=== PATIENT | female | born 1990 | race Caucasian/White ===

== ENCOUNTER 2020-11-05 18:14 | Inpatient (IN) | payer MEDICAID, OTHER ==
[~2020-11-05] VITALS: Ht 162.6 cm; Wt 69.9 kg
[2020-11-05] MEDS ORDERED: ACETAMINOPHEN 325MG TABLET PO ONE (18:45)
[2020-11-05 19:14] LABS: BASOPHILS % 0.3 % (0.0-2.0); EOSINOPHILS % 0.5 % (0.0-5.0); HEMATOCRIT. 33.2 % (36.0-48.0); HEMOGLOBIN. 11.4 g/dL (12.0-16.0); LYMPHOCYTES % 18.1 % (20.0-50.0); MEAN CORPUSCULAR HEMOGLOBIN 28.7 pg (28.0-32.0); MEAN CORPUSCULAR VOLUME 83.6 fL (81.0-99.0); MEAN PLATELET VOLUME 7.3 fl (7.4-10.4); MONOCYTES % 6.3 % (2.0-8.0); NEUTROPHILS % 74.8 % (40.0-76.0); PLATELET 342 x1000/uL (130-400); RED BLOOD CELL COUNT 3.98 mill/uL (4.2-5.4); RED CELL DISTRIBUTION WIDTH 14.8 % (11.6-14.6)
[2020-11-05 19:16] LABS: CHLORIDE 106 mEq/L (98-107)
[2020-11-05 19:39] LABS: B-HCG QUANTITATIVE 11138 mIU/mL (<3)
[2020-11-05 19:53] LABS: CLARITY URINE CLOUDY (CLEAR); COLOR URINE YELLOW (YELLOW); KETONES URINE NEGATIVE (NEGATIVE); LEUKOCYTE ESTERASE URINE 2+ (NEGATIVE); NITRITE URINE NEGATIVE (NEGATIVE); OCCULT BLOOD URINE 3+ (NEGATIVE); PROTEIN URINE 1+ (NEGATIVE); SPECIFIC GRAVITY URINE 1.007 (1.005-1.030); UROBILINOGEN URINE 0.2 E.U./dL (0.2-1.0)
[2020-11-05] MEDS ORDERED: CEFTRIAXONE 1 G PREMIX 50 ML IV ONE (21:45)
[2020-11-06] MEDS ORDERED: ACETAMINOPHEN 325MG TABLET PO ONE
[2020-11-06] MEDS ORDERED: ACETAMINOPHEN 325MG TABLET PO PRN (01:30)
[2020-11-06] MEDS ORDERED: ONDANSETRON HCL 4MG/2ML INJ IV PRN (01:30)
[2020-11-06] MEDS ORDERED: CEFAZOLIN 2,000 MG in DEXT 5% WATER 100 ML IV SCH (02:00)
[2020-11-06] MEDS: LACTATED RINGERS 1,000 ML IV SCH ×3 (03:52→16:39)
[2020-11-06 09:00] VITALS: BP 98/56
[2020-11-06 10:10] VITALS: BP 98/52
[2020-11-06] MEDS ORDERED: PREN1COM16 MT (10:27)
[2020-11-06 12:00] VITALS: BP 103/52
[2020-11-06 20:00] VITALS: BP 94/44
[2020-11-07] VITALS: BP 92/36
[2020-11-07] MEDS: LACTATED RINGERS 1,000 ML IV SCH ×3 (00:16→06:49)
[2020-11-07 04:00] VITALS: BP 97/44
[2020-11-07 08:00] VITALS: BP 91/46
[2020-11-07] MEDS ORDERED: CEPH500T MT (08:08)
[2020-11-07 09:15] VITALS: BP 91/46
== END 2020-11-07 11:10 | disposition home or self-care (01) | DRG 566 ==
LOC: ER 18:14 → ENRESERV 11-06 08:17 → 6EST 11-06 09:36
PROVIDERS: ADMIT Specialist; ATTEND Specialist
DX: O23.02 Infections of kidney in pregnancy, second trimester (principal); Z3A.17 17 weeks gestation of pregnancy
CPT/HCPCS: 36415; 76770; 76805; 80053; 81003; 84702; 85025; 86850; 86900; 99285; J0690; J0696; J7060

== ENCOUNTER 2021-04-03 02:13 | Inpatient (IN) | payer MEDICAID ==
[~2021-04-03] VITALS: Ht 162 cm; Wt 70.3 kg
[~2021-04-03 02:13] MED LIST: CEPH500T MT; PREN1COM16 MT
[2021-04-03] MEDS ORDERED: PENICILLIN G POTASSIUM 5 MMU in DEXT 5% WATER 100 ML IV NR (04:00)
[2021-04-03] MEDS ORDERED: LIDOCAINE HCL 1% 20ML VIAL (Pyxis) INJ INFIL SCH ×2 (04:30→09:00)
[2021-04-03 05:28] LABS: BASOPHILS % 0.3 % (0.0-2.0); HEMOGLOBIN. 11.8 g/dL (12.0-16.0); LYMPHOCYTES % 18.9 % (20.0-50.0); MEAN CORPUSCULAR HEMOGLOBIN 27.7 pg (28.0-32.0); MEAN CORPUSCULAR VOLUME 86.6 fL (81.0-99.0); MONOCYTES % 6.4 % (2.0-8.0); NEUTROPHILS % 73.4 % (40.0-76.0); PLATELET 336 x1000/uL (130-400); RED BLOOD CELL COUNT 4.27 mill/uL (4.2-5.4); RED CELL DISTRIBUTION WIDTH 14.8 % (11.6-14.6)
[2021-04-03 05:47] LABS: CLARITY URINE CLEAR (CLEAR); COLOR URINE YELLOW (YELLOW); KETONES URINE NEGATIVE (NEGATIVE); LEUKOCYTE ESTERASE URINE NEGATIVE (NEGATIVE); NITRITE URINE NEGATIVE (NEGATIVE); OCCULT BLOOD URINE NEGATIVE (NEGATIVE); PH URINE 6.5 (4.5-8.0); PROTEIN URINE TRACE (NEGATIVE); SPECIFIC GRAVITY URINE 1.012 (1.005-1.030); UROBILINOGEN URINE 0.2 E.U./dL (0.2-1.0)
[2021-04-03 06:04] LABS: *AMPHETAMINES SCREEN URINE NEGATIVE (NEGATIVE); *BARBITURATES SCREEN URINE NEGATIVE (NEGATIVE); *BENZODIAZEPINES SCREEN URINE NEGATIVE (NEGATIVE); *COCAINE SCREEN URINE NEGATIVE (NEGATIVE); METHADONE URINE SCREEN NEGATIVE (NEGATIVE); OPIATES URINE SCREEN NEGATIVE (NEGATIVE)
[2021-04-03 06:05] LABS: CANNABINOID URINE SCREEN NEGATIVE (NEGATIVE); PHENCYCLIDINE URINE SCREEN NEGATIVE (NEGATIVE)
[2021-04-03 06:06] LABS: HEPATITIS B SURFACE ANTIGEN NEGATIVE; INR 0.9; PROTHROMBIN TIME 9.7 sec (9.6-11.0)
[2021-04-03] MEDS ORDERED: DEXT 5%/LR + PITOCIN 20UNITS/L 1,000 ML IV SCH (09:00)
[2021-04-03] MEDS ORDERED: CARBOPROST TROMETHAMINE 250 MCG/ML AMPUL IM PRN (09:00)
[2021-04-03] MEDS ORDERED: MINERAL OIL 30ML BOTTLE PO ONE (09:00)
[2021-04-03] MEDS ORDERED: METHYLERGONOVINE MALEATE 0.2 MG/ML IM PRN (09:00)
[2021-04-03] MEDS ORDERED: NALOXONE HCL 0.4 MG/ML 1ML VIAL IM PRN (09:00)
[2021-04-03] MEDS ORDERED: ROPIVACAINE HCL/PF EPIDURAL 200 ML EP SCH (09:45)
[2021-04-03] MEDS: BUTORPHANOL TARTRATE 2 MG/ML VIAL IV PRN ×2 (12:19→19:38)
[2021-04-03] MEDS: LACTATED RINGERS 1,000 ML IV SCH ×2 (12:20→22:12)
[2021-04-03] MEDS: PENICILLIN G POTASSIUM 2.5 MMU in DEXTROSE 5% WATER 50 ML IV SCH ×3 (13:45→21:29)
[2021-04-04] MEDS: PENICILLIN G POTASSIUM 2.5 MMU in DEXTROSE 5% WATER 50 ML IV SCH ×4 (01:27→13:51)
[2021-04-04] MEDS: BUTORPHANOL TARTRATE 2 MG/ML VIAL IV PRN ×3 (05:14→17:02)
[2021-04-04] MEDS ORDERED: TERBUTALINE SULFATE 1MG/ML VIAL SUBCUT SCH (08:00)
[2021-04-04] MEDS: LACTATED RINGERS 1,000 ML IV SCH ×2 (08:01→17:52)
[2021-04-04] MEDS ORDERED: FENTANYL CITRATE/PF 50MCG/ML 2ML VIAL ONE (08:22)
[2021-04-04] MEDS ORDERED: ROPIVACAINE HCL/PF EPIDURAL 200 ML EPI ONE (08:22)
[2021-04-04] MEDS ORDERED: NALOXONE HCL 0.4 MG/ML 1ML VIAL IM PRN (13:45)
[2021-04-04] MEDS ORDERED: METHYLERGONOVINE MALEATE 0.2 MG/ML IM PRN (13:45)
[2021-04-04] MEDS ORDERED: LACTATED RINGERS 1,000 ML IV SCH (13:45)
[2021-04-04] MEDS ORDERED: CARBOPROST TROMETHAMINE 250 MCG/ML AMPUL IM PRN (13:45)
[2021-04-04] MEDS ORDERED: LIDOCAINE HCL 1% 20ML VIAL (Pyxis) INJ INFIL SCH (13:45)
[2021-04-04] MEDS ORDERED: MORPHINE SULFATE/PF 1MG/ML 10ML AMP ONE (19:38)
[2021-04-04] MEDS ORDERED: CITRIC ACID/SODIUM CITRATE SOLN 30ML UDC PO NR (20:00)
[2021-04-04] MEDS ORDERED: NALOXONE HCL 0.4 MG/ML 1ML VIAL IV PRN ×2 (20:15)
[2021-04-04] MEDS ORDERED: KETOROLAC 60MG/2ML VIAL IM ONE (20:40)
[2021-04-04] MEDS ORDERED: CEFAZOLIN SODIUM 1000MG/VIAL ONE (20:41)
[2021-04-04] MEDS ORDERED: ONDANSETRON HCL 4MG/2ML INJ ONE (20:41)
[2021-04-04] MEDS ORDERED: DEXAMETHASONE 4MG/ML 1ML VIAL ONE (20:41)
[2021-04-04] MEDS ORDERED: EPHEDRINE SULFATE 50MG/ML VIAL ONE (20:41)
[2021-04-04] MEDS ORDERED: BISACODYL 10MG SUPP PR PRN (20:45)
[2021-04-04] MEDS ORDERED: DEXT 5%/LR + PITOCIN 20UNITS/L 1,000 ML IV SCH (20:45)
[2021-04-04] MEDS ORDERED: ONDANSETRON HCL 4MG/2ML INJ IV PRN (20:45)
[2021-04-04] MEDS ORDERED: LANOLIN OINT 7GM TUBE TOP PRN (20:45)
[2021-04-04] MEDS ORDERED: IBUPROFEN 400MG TABLET PO PRN (20:45)
[2021-04-04] MEDS ORDERED: DIPHENHYDRAMINE 25MG CAPSULE PO PRN (20:45)
[2021-04-04 23:45] VITALS: BP 106/58
[2021-04-05 02:30] VITALS: BP 104/54
[2021-04-05 05:30] VITALS: BP 108/59
[2021-04-05 07:21] LABS: BASOPHILS % 0.1 % (0.0-2.0); HEMATOCRIT. 28.6 % (36.0-48.0); HEMOGLOBIN. 9.3 g/dL (12.0-16.0); LYMPHOCYTES % 10.4 % (20.0-50.0); MEAN CORPUSCULAR HEMOGLOBIN 28.6 pg (28.0-32.0); MEAN CORPUSCULAR VOLUME 87.7 fL (81.0-99.0); MEAN PLATELET VOLUME 7.3 fl (7.4-10.4); MONOCYTES % 6.9 % (2.0-8.0); NEUTROPHILS % 82.6 % (40.0-76.0); PLATELET 265 x1000/uL (130-400); RED BLOOD CELL COUNT 3.26 mill/uL (4.2-5.4); RED CELL DISTRIBUTION WIDTH 15.4 % (11.6-14.6)
[2021-04-05 08:30] VITALS: BP 98/46
[2021-04-05] MEDS: IBUPROFEN 800MG TABLET PO PRN ×2 (15:01→21:00)
[2021-04-05] MEDS: PRENATAL VIT/FE FUMARATE/FA TABLET PO SCH (15:01)
[2021-04-05] MEDS: FERROUS SULFATE 325MG TABLET PO SCH (15:02)
[2021-04-05 17:15] VITALS: BP 98/44
[2021-04-05 20:00] VITALS: BP 103/55
[2021-04-05] MEDS: MAGNESIUM/ALUMINUM HYDROXIDE/SIMETHICONE 30ML UDC PO SCH (20:59)
[2021-04-05] MEDS: SIMETHICONE 80MG TABLET CHEW PO SCH (20:59)
[2021-04-05] MEDS: DOCUSATE SODIUM 100MG CAPSULE PO SCH (20:59)
[2021-04-06 04:00] VITALS: BP 104/52
[2021-04-06] MEDS: IBUPROFEN 800MG TABLET PO PRN ×3 (04:00→18:26)
[2021-04-06] MEDS ORDERED: TETANUS, DIPHTHERIA, PERTUSSIS VAC/PF 0.5ML (>10YR OLD) IM ONE (05:00)
[2021-04-06] MEDS ORDERED: INFLUENZA VACCINE 05/PF 0.5 ML SYRINGE IM ONE (06:00)
[2021-04-06] MEDS: PRENATAL VIT/FE FUMARATE/FA TABLET PO SCH (08:58)
[2021-04-06] MEDS: FERROUS SULFATE 325MG TABLET PO SCH ×3 (08:58→18:26)
[2021-04-06] MEDS: SIMETHICONE 80MG TABLET CHEW PO SCH ×4 (08:59→20:13)
[2021-04-06 10:00] VITALS: BP 116/68
[2021-04-06] MEDS: MAGNESIUM/ALUMINUM HYDROXIDE/SIMETHICONE 30ML UDC PO SCH ×3 (13:24→20:13)
[2021-04-06] MEDS: HYDROCODONE/ACETAMINOPHEN 5/325MG TABLET PO PRN (13:25)
[2021-04-06 16:30] VITALS: BP 103/47
[2021-04-06 20:00] VITALS: BP 108/61
[2021-04-06] MEDS: DOCUSATE SODIUM 100MG CAPSULE PO SCH (20:13)
[2021-04-07] VITALS: BP 110/60
[2021-04-07] MEDS: IBUPROFEN 800MG TABLET PO PRN ×2 (01:50→08:26)
[2021-04-07 04:17] VITALS: BP 109/57
[2021-04-07] MEDS: SIMETHICONE 80MG TABLET CHEW PO SCH (08:26)
[2021-04-07] MEDS: FERROUS SULFATE 325MG TABLET PO SCH (08:26)
[2021-04-07] MEDS: PRENATAL VIT/FE FUMARATE/FA TABLET PO SCH (08:26)
[2021-04-07] MEDS: MAGNESIUM/ALUMINUM HYDROXIDE/SIMETHICONE 30ML UDC PO SCH (08:27)
[2021-04-07 08:30] VITALS: BP 104/61
[2021-04-07] MEDS: HYDROCODONE/ACETAMINOPHEN 5/325MG TABLET PO PRN (11:43)
== END 2021-04-07 12:45 | disposition home or self-care (01) | DRG 540 ==
LOC: 8 EST LDRP 02:13 → OBSVTOIN 02:13 → 8EST 04-04 23:41
PROVIDERS: ADMIT Obstetrics & Gynecology; ATTEND Obstetrics & Gynecology
PROC: 10D00Z1 Extraction of Products of Conception, Low, Open Approach (ICD-10-PCS; principal; 2021-04-04)
DX: O62.2 Other uterine inertia (principal); Z20.822 Contact with and (suspected) exposure to COVID-19; Z37.0 Single live birth; Z3A.38 38 weeks gestation of pregnancy
CPT/HCPCS: 36415; 76805; 76818; 80305; 81003; 85025; 86592; 86703; 86762; 86850; 86900; 87340; 87426; 88307; 90686; 90715; 99281; G0378; J0595; J0690; J1100; J1885; J2274; J2405; J2540; J2590; J2795; J3010; J3105; J3490; J7060; J7120